=== PATIENT | female | born 1955 | race Hispanic/Latino ===

== ENCOUNTER 2016-12-29 09:14 | Day surgery (SDC) | payer OTHER ==
[~2016-12-29] VITALS: Ht 157.5 cm; Wt 76.2 kg
[~2016-12-29 09:14] MED LIST: ASPIRIN 81 LOW81 MG PO; DOXEPIN HCL25 MG PO; EQL IBUPROFEN200 MG PO; GABAPENTIN100 MG PO; HYZAAR1 TAB PO; KENALOG15 GM/TUBE EX; METFORMIN HCL500 M2 PO; METOPROLOL SUCC50 MG PO; MUPIROCIN2 % EX; NOVOLIN 70/30 SC; OMEPRAZOLE20 MG PO; PRAVASTATIN SOD40 MG PO; SWISS KRISS; TYLENOL 500MG TAB PO
[2016-12-29 12:49] VITALS: BP 132/67
== END 2016-12-29 11:55 | disposition home or self-care (01) | DRG 392 ==
LOC: ENDO 09:14
PROVIDERS: ATTEND Internal Medicine Gastroenterology
PROC: 0DJD8ZZ Inspection of Lower Intestinal Tract, Via Natural or Artificial Opening Endoscopic (ICD-10-PCS; principal; 2016-12-29)
DX: R14.0 Abdominal distension (gaseous) (principal); I10 Essential (primary) hypertension; K59.00 Constipation, unspecified; K64.4 Residual hemorrhoidal skin tags; K64.8 Other hemorrhoids; K29.70 Gastritis, unspecified, without bleeding; K21.9 Gastro-esophageal reflux disease without esophagitis; E11.9 Type 2 diabetes mellitus without complications; F41.9 Anxiety disorder, unspecified